=== PATIENT | female | born 1950 | race Caucasian/White ===

== ENCOUNTER 2019-02-27 14:36 | Inpatient (IN) | payer MEDICARE, OTHER ==
[~2019-02-27] VITALS: Ht 154.9 cm; Wt 80.9 kg
[~2019-02-27 14:36] MED LIST: AMLO5TAB4 PO; ATEN-51 PO; CRES20 PO; DOCU-144 PO; ERGO500013 PO; ESOM20CA PO; LEVO75TA5 PO; LISI10TA2 PO; OMEG1CAP2 PO
[2019-02-27] MEDS ORDERED: SOD CHLORIDE 0.9% 500 ML IV STA (16:34)
--- NOTE | 2019-02-27 17:26 | ERD ---
ER Documentation Chief Complaint Chief Complaint MD ref for Hgb 7.4. 2 wks of bleeding hemorrhoids. dizzy+ weak HPI This is a 68-year-old female with a past medical history of [id number] diabetes mellitus, hypertension, hypothyroidism that presents to the emergency department after being seen and evaluated by the primary care physician for generalized weakness. The patient indicates for the past 2 weeks she is felt lightheaded and dizzy. She feels short of breath with exertion. She states that she is been having a significant amount of rectal bleeding from her hemorrhoids. Roughly 6 months ago she had her hemorrhoids removed with surgical repair but she indicated they have returned as she has a known history of chronic constipation. The patient received a call from her primary care physician today that her hemoglobin was low at 7.4. She was sent to the emergency department for further evaluation. She denies any hemoptysis or hematemesis and no melanotic stools. She states the rectal bleeding is brig ht red blood per rectum present when she attempts to have a bowel movement. She denies any abdominal pain. She denies any recent travel or prolonged immobilization no swelling of her lower extremities. ROS All systems reviewed and are negative except as per history of present illness. Medications Home Meds Reported Medications Ergocalciferol (Vitamin D2) (VITAMIN D2) 50,000 Unit Capsule, 44592 UNIT PO Q FRI, CAP 02/27/19 [place]-3 Acid Ethyl Esters (Lovaza) 1 Gm Capsule, 2 GM PO BID, CAP 02/27/19 Rosuvastatin Calcium* (Crestor*) 20 Mg Tablet, 20 MG PO QHS, #30 TAB 02/27/19 Esomeprazole Mag Trihydrate (Nexium) 20 Mg Capsule.dr, 20 MG PO BID, #30 CAP 02/27/19 Amlodipine Besylate* (Norvasc*) 5 Mg Tablet, 5 MG PO DAILY, TAB 02/27/19 Atenolol* (Atenolol*) 25 Mg Tablet, 25 MG PO DAILY, #30 TAB 02/27/19 Levothyroxine Sodium* (Levothyroxine Sodium*) 75 Mcg Tablet, 75 MCG PO BEFORE BREAKFAST, #30 TAB 02/27/19 Docusate Sodium* (Colace*) 100 Mg Capsule, 100 MG PO BID, #60 CAP 02/27/19 Lisinopril* (Lisinopril*) 10 Mg Tablet, 10 MG PO NEEDED, #30 TAB 02/27/19 Allergies Allergies: Coded Allergies: aspirin (Verified Allergy, Unknown, 02/27/19) PMhx/Soc History of Surgery: Yes (Api) Anesthesia Reaction: No Hx Neurological Disorder: No Hx Respiratory Disorders: No Hx Cardiac Disorders: Yes (HTN, HLD) Hx Psychiatric Problems: No Hx Miscellaneous Medical Probl: Yes (low thyroid, arthritis) Hx Alcohol Use: No Hx Substance Use: No Hx Tobacco Use: No Smoking Status: Never smoker Physical Exam Vitals Vital Signs Date Temp Pulse Resp B/P (MAP) Pulse Ox O2 O2 Flow FiO2 Time Delivery Rate 02/27/19 98.0 66 16 138/76 97 Room Air 17:30 (96) 02/27/19 98.7 82 16 140/74 95 14:50 (96) Physical Exam Constitutional:Well-developed. Well-nourished. HEENT:Normocephalic. Atraumatic.Pupils were equal round reactive to light. Moist mucous membranes.No tonsillar exudates. Conjunctival pallor Neck: No nuchal rigidity. No lymphadenopathy. No posterior cervical spine tenderness or step-offs. Respiratory: Not using accessory muscles of respiration.Lungs were clear to auscultation bilaterally. No rhonchi. No rales. No wheezing. Cardiovascular: Regular rate regular rhythm.No murmurs. No rubs were appreciated.S1, S2 normal. Distal pulses are palpable 2+ bilaterally. GI: Abdomen was soft. Nontender. Non Distended. No pulsatile abdominal masses or bruits. No rebound. No guarding. Bowel sounds were present and normal. RECTAL: External hemorrhoids present at the 3:00 6:00 and 9 o'clock position with no active rectal bleeding. Fecal occult blood test was negative. Muscle skeletal: Full range of motion of both the upper and lower extremities bilaterally.Normal muscle tone.No assymetrical calf tenderness or swelling. Skin: No petechia, no purpura. No lesions on the palms or the soles of the feet. No maculopapular rash. NEURO: Patient was alert, awake, orientated x3.No facial droop. Gait observed and normal with no ataxia.Speech had regular rate and rhythm. No focal neurological deficits. Result Diagram: 02/27/19 1550 02/27/19 1550 Results 24 hrs Laboratory Tests Test 02/27/19 15:50 White Blood Count 4.9 10^3/ul Red Blood Count 3.40 10^6/ul Hemoglobin 6.9 g/dl Hematocrit 24.4 % Mean Corpuscular Volume 71.8 fl Mean Corpuscular Hemoglobin 20.3 pg Mean Corpuscular Hemoglobin Concent 28.3 g/dl Red Cell Distribution Width 17.9 % Platelet Count 273 10^3/UL Mean Platelet Volume 10.5 fl Immature Granulocytes % 0.200 % Neutrophils % % Segmented Neutrophils % (Manual) 52 % Lymphocytes % % Lymphocytes % (Manual) 43 % Monocytes % % Monocytes % (Manual) 1 % Eosinophils % % Eosinophils % (Manual) 3 % Basophils % % Basophils % (Manual) 1 % Nucleated Red Blood Cells % 0.0 /100WBC Immature Granulocytes # 0.010 10^3/ul Neutrophils # 10^3/ul Lymphocytes (Manual) 2.1 10^3/ul Lymphocytes # 10^3/ul Monocytes # 10^3/ul Monocytes # (Manual) 0.0 10^3/ul Eosinophils # 10^3/ul Basophils # 10^3/ul Basophils # (Manual) 0.0 10^3/ul Nucleated Red Blood Cells # 10^3/ul Pathologist Review (Hematology) YES Platelet Estimate NORMAL Giant Platelets 3 % Polychromasia 2+ Hypochromasia 1+ Poikilocytosis 1+ Anisocytosis 3+ Microcytosis 3+ Sodium Level 143 mmol/L Potassium Level 4.4 mmol/L Chloride Level 108 mmol/L Carbon Dioxide Level 27 mmol/L Anion Gap 8 Blood Urea Nitrogen 16 mg/dl Creatinine 0.85 mg/dl Est Glomerular Filtrat Rate mL/min > 60 mL/min Glucose Level 109 mg/dl Calcium Level 9.3 mg/dl Iron Level 13 ug/dl Total Iron Binding Capacity 477 ug/dl Percent Iron Saturation 3 % SAT Ferritin 3.3 ng/ml Total Bilirubin 0.3 mg/dl Direct Bilirubin 0.00 mg/dl Indirect Bilirubin 0.3 mg/dl Aspartate Amino Transf (AST/SGOT) 25 IU/L Alanine Aminotransferase (ALT/SGPT) 15 IU/L Alkaline Phosphatase 43 IU/L Total Protein 7.7 g/dl Albumin 4.2 g/dl Globulin 3.50 g/dl Albumin/Globulin Ratio 1.20 Current Medications Medications Dose Sig/Ronni Start Time Status Last (Trade) Ordered Route PRN Stop Time Admin Dose Reason Admin Sodium 500 ml @ Q1H STAT 02/27/19 DC 02/27/19 Chloride 500 mls/hr IV 16:34 16:54 02/27/19 17:33 Procedures/MDM The patient presented to the emergency department with hematochezia, suggesting a lower gastrointestinal bleeding. My differential diagnosis included but was not limited to diverticulosis, cancer, polyps, colitis, internal or external hemorrhoids, IBD, and vascular etiologies such as angiodysplasia or aortocolonic fistula. The patient was placed on a youth nutritional monitor, continuous pulse oximetry, and IV access established by nursing staff. Patient was anemic with hemoglobin of 6.9. I did feel the patient's symptoms are likely result of her lower GI bleed from external hemorrhoids. The patient will be typed and crossed and received 1 unit of packed red blood cells in the emergency department. 12 Lead EKG tracing ordered and reviewed by myself showed: Normal sinus rhythm of 70 bpm and no arrhythmia. [place] interval normal. QRS duration normal. No ST segment elevation No ST segment depression. No changes consistent with acute ischemia. The patient I did feel stable for transfer. She was alert awake oriented x3. There is no signs of hemorrhagic shock. The patient was capitated to [facility] however the accepting physician there did not feel that the patient was stable for transfer and therefore will be admitted to the hospit alist Dr. Warner. She will be admitted to the medical surgical floor. Critical Care: Time: 40 minutes Treatments/Evaluations: Close monitoring and treatment of unstable vital signs, cardiorespiratory, and neurologic status, while maintaining tight balance of fluid, respiratory, and cardiac interventions. Time does not include performing any of the above billable procedures. Departure Diagnosis: Primary Impression: Severe anemia Additional Impression: Lower GI bleed Condition: Serious TARAN KONG MD Feb 27, 2019 17:26
[2019-02-27] MEDS ORDERED: ACETAMINOPHEN 325 MG TAB PO PRN ×2 (18:30→19:00)
[2019-02-27] MEDS ORDERED: ONDANSETRON 4 MG INJ IV PRN ×2 (18:30→19:00)
[2019-02-27] MEDS ORDERED: SENNA TAB PO PRN (19:00)
[2019-02-27] MEDS ORDERED: NACL 0.9% 3 ML SYG IV SCH (19:00)
--- NOTE | 2019-02-27 19:17 | HP ---
Date/Time of Note Date/Time of Note DATE: 02/27/19 TIME: 19:03 Assessment/Plan VTE Prophylaxis SCD applied (from Nsg): Yes Pharmacological prophylaxis: NA/contraindicated Pharm contraindication: bleeding Lines/Catheters IV Catheter Type (from Nrsg): Saline Lock Assessment/Plan Assessment/Plan 68 yo woman with history of bleeding rectal hemorrhoids, HTN, type II diabetes mellitus, and hypothyroidism presents with symptomatic anemia #Symptomatic anemia - Iron deficiency - Transfuse to Hgb>7 or for symptomatic anemia - Will do IV ferrlicit also #Rectal bleed - Likely bleeding hemorrhoids. May be slow chronic bleed - Will consult GI, patient likely needs colonoscopy to rule out occult lower GI bleed. - Will do clear liquids for tonight. #Diabetes - Not on insulin or metformin. - Check HgbA1C - ACHS blood sugar checks. #HTN - Cont home antihypertensives #GERD - H2 alexis IV BID #dyslipidemia - Cont home statin #Hypothyroidism - Cont home levothyroxine DVT: SCDs GI: H2 alexis Result Diagram: 02/27/19 1550 02/27/19 1550 HPI/ROS Admit Date/Time Admit Date/Time 27 February 2019 Hx of Present Illness Ms. Hutchins is a 68 yo [place] speaking woman with history of bleeding rectal hemorrhoids, HTN, type II diabetes mellitus, and hypothyroidism who presents with fatigue and weakness. She has had constipation and bleeding hemorrhoids for years. About 6 months ago she got the internal hemorrhoids banded by Dr. Tyra Skelton. However in the past two weeks she's noticed intermittent episodes of thick red rectal bleeding. Often after she sits for a long time she'll have spots of blood on her pants. Also over the past two weeks she's had fatigue and worsening exercise tolerance with dyspnea, lightheadedness, and palpitations when walking. She denies melena or dark black stools. She had a colonoscopy about 6 years ago, she thinks it was normal. Never had upper endoscopy. She saw her primary care doctor today and got labs. Hgb came back at 7.4 so she was instructed to go to the ED to get blood transfusion for symptomatic anemia. In the ED she was afebrile, P 60-80s, BP 140/74, breathing comfortably on room a ir. Hgb was 6.9 with MCV 71.8. ferritin was 3.3. BMP was unremarkable. A transfusion of packed RBCs was started. ROS She denies recent fever, chills, weight loss, night sweats, vision changes, sore throat, dyspnea, nausea, vomiting, abdominal pain, cough, chest pain or pressure , diarrhea, dysuria, hematuria. PMH/Family/Social Past Medical History Bleeding internal and external hemorrhoids. Hypertension dyslipidemia hypothyroidism GERD Medications Current Medications Ondansetron HCl (Zofran Inj) 4 mg BRIDGE ORDER PRN IV NAUSEA/VOMITING; Start 02/27/19 at 18:30; Stop 02/28/19 at 18:29 Acetaminophen (Tylenol Tab) 650 mg ER BRIDGE PRN PO .MILD PAIN 1-3 OR TEMP; Start 02/27/19 at 18:30; Stop 02/28/19 at 18:29 IV Flush (NS 3 ml) 3 ml PER PROTOCOL IV ; Start 02/27/19 at 19:00; Status UNV Ondansetron HCl (Zofran Inj) 4 mg Q6H PRN IV NAUSEA/VOMITING; Start 02/27/19 at 19:00; Status UNV Acetaminophen (Tylenol Tab) 650 mg Q6H PRN PO .PAIN 1-3 OR TEMP; Start 02/27/19 at 19:00; Status UNV Famotidine (Pepcid Iv) 20 mg Q12 IV ; Start 02/27/19 at 21:00; Status UNV Senna (Senokot) 1 tab BID PRN PO CONSTIPATION; Start 02/27/19 at 19:00; Status UNV Coded Allergies: aspirin (Verified Allergy, Unknown, 02/27/19) Past Surgical History Rectal hemorrhoid banding early 2018. Unknown RLQ abdominal surgery Social History Alcohol Use: none Smoking Status: Never smoker Drug Use: none Exam/Review of Systems Vital Signs Vitals Vital Signs Date Temp Pulse Resp B/P (MAP) Pulse Ox O2 O2 Flow FiO2 Time Delivery Rate 02/27/19 98.0 66 16 138/76 97 Room Air 17:30 (96) Exam Exam Gen: Obese woman comfortable appearing in [facility]. Eyes: PERRL, no icterus HEENT: Moist mucous membranes. Top and bottom dentures. Clear oropharynx Neck: Supple, no lymphadenopathy Card: Regular rate and rhythm, no murmurs Pulm: Clear to auscultation bilaterally. Abd: Soft, nontender, nondistended. Normoactive bowel sounds. RLQ small 6 cm incision, well healed. Ext: No cyanosis/clubbing/edema Skin: warm, dry, well perfused. MELZIA SNOW MD Feb 27, 2019 19:17
[2019-02-27 19:30] VITALS: Ht 154.9 cm; Wt 80.9 kg
[2019-02-27] MEDS ORDERED: GLUCOSE GEL 15 GRAM TUBE BUCCAL PRN (19:30)
[2019-02-27] MEDS ORDERED: DEXTROSE 50% 50 ML SYRINGE IV PRN ×2 (19:30)
[2019-02-27] MEDS ORDERED: GLUCAGON 1 MG INJ IM PRN (19:30)
[2019-02-27] MEDS ORDERED: GLUCOSE GEL 15 GRAM TUBE PO PRN ×2 (19:30)
[2019-02-27 20:32] VITALS: BP 134/74; PULSE 70; RESP 18
[2019-02-27] MEDS: FAMOTIDINE 20 MG INJ IV SCH (21:00)
[2019-02-27] MEDS: INSULIN ASPART [NOVOLOG] 3 ML PEN SC SCH (21:00)
[2019-02-27] MEDS: DOCUSATE SODIUM 100 MG CAP PO SCH (21:17)
[2019-02-27] MEDS: ATORVASTATIN 40 MG TAB PO SCH (21:17)
[2019-02-28] MEDS ORDERED: ZOLPIDEM 5 MG TAB ONE (00:30)
[2019-02-28] MEDS: ZOLPIDEM 5 MG TAB PO PRN ×2 (00:40→20:24)
[2019-02-28] MEDS: ACCU-CHEK XX SCH ×2 (02:00→20:23)
[2019-02-28 02:53] VITALS: BP 126/66; PULSE 76; RESP 16
[2019-02-28] MEDS: LEVOTHYROXINE 75 MCG TAB PO SCH (06:14)
[2019-02-28] MEDS: INSULIN ASPART [NOVOLOG] 3 ML PEN SC SCH ×4 (07:49→20:23)
[2019-02-28 08:08] VITALS: BP 123/71; PULSE 67; RESP 17
[2019-02-28] MEDS: DOCUSATE SODIUM 100 MG CAP PO SCH ×2 (09:05→20:22)
[2019-02-28] MEDS: LISINOPRIL 10 MG TAB PO SCH (09:05)
[2019-02-28] MEDS: ATENOLOL 25 MG TAB PO SCH (09:05)
[2019-02-28] MEDS: AMLODIPINE 5 MG TAB PO SCH (09:05)
--- NOTE | 2019-02-28 11:17 | CONS ---
Assessment/Plan Assessment/Plan Hospital Course (Demo Recall) Summary Assessment and Plan: Assessment: Symptomatic anemia -With rectal bleeding described as dark/ with clots History of hemorrhoidal banding about 7 months ago Pyrosis HTN DM Dyslipidemia Hypothyroidism Plan: Clear liquid diet today Npo after 0800 03/01/19 EGD/colonoscopy Endoscopy - risks/benefits/alternatives/indications of procedure and sedation/anesthesia discussed with patient who states understanding and gives informed consent to proceed. Monitor H/H, transfuse for HGB less than 7.5 Patient seen in collaboration with Dr. Kaminski CC: PHI KAMINSKI MD ; Consultation Date/Type/Reason Admit Date/Time 27 February 2019 Date of Consultation: Feb 28, 2019 Type of Consult GI Reason for Consultation Anemia Requesting Provider: MELIZA SNOW MD Date/Time of Note DATE: 02/28/19 TIME: 10:54 Hx of Present Illness This is a 68-year-old [place] speaking female with past medical history of hypertension, diabetes mellitus, hypothyroidism, previous hemorrhoidal banding about 7 months ago. Who presented to the hospital with complaints of weakness and shortness of breath. With work-up patient found to have significant microcytic hypochromic anemia with a hemoglobin of 6.8 she is status post blood transfusion with an appropriate response hemoglobin this morning was 8.0. At time evaluation patient states she has had rectal bleeding. Described as dark red with clots. Patient states she is previously had a colonoscopy about 5 to 6 years ago unclear results. And she is unclear she is ever had an upper endoscopy. Time evaluation she denies nausea/vomiting or abdominal pain. Discussed plan for EGD colonoscopy via general office assistant patient verbalized understanding is agreeable to procedure. Review of Systems: A 12 system, review was conducted and is negative except as noted in the HPI or here. Past Medical History Home Meds Reported Medications Ergocalciferol (Vitamin D2) (VITAMIN D2) 50,000 Unit Capsule, 81701 UNIT PO Q FRI, CAP 02/27/19 [place]-3 Acid Ethyl Esters (Lovaza) 1 Gm Capsule, 2 GM PO BID, CAP 02/27/19 Rosuvastatin Calcium* (Crestor*) 20 Mg Tablet, 20 MG PO QHS, #30 TAB 02/27/19 Esomeprazole Mag Trihydrate (Nexium) 20 Mg Capsule.dr, 20 MG PO BID, #30 CAP 02/27/19 Amlodipine Besylate* (Norvasc*) 5 Mg Tablet, 5 MG PO DAILY, TAB 02/27/19 Atenolol* (Atenolol*) 25 Mg Tablet, 25 MG PO DAILY, #30 TAB 02/27/19 Levothyroxine Sodium* (Levothyroxine Sodium*) 75 Mcg Tablet, 75 MCG PO BEFORE BREAKFAST, #30 TAB 02/27/19 Docusate Sodium* (Colace*) 100 Mg Capsule, 100 MG PO BID, #60 CAP 02/27/19 Lisinopril* (Lisinopril*) 10 Mg Tablet, 10 MG PO NEEDED, #30 TAB 02/27/19 Medications Current Medications IV Flush (NS 3 ml) 3 ml PER PROTOCOL IV ; Start 02/27/19 at 19:00 Ondansetron HCl (Zofran Inj) 4 mg Q6H PRN IV NAUSEA/VOMITING; Start 02/27/19 at 19:00 Acetaminophen (Tylenol Tab) 650 mg Q6H PRN PO .PAIN 1-3 OR TEMP; Start 02/27/19 at 19:00 Famotidine (Pepcid Iv) 20 mg Q24H IV ; Start 02/27/19 at 21:00 Senna (Senokot) 1 tab BID PRN PO CONSTIPATION; Start 02/27/19 at 19:00 Amlodipine Besylate (Norvasc) 5 mg DAILY PO Last administered on 02/28/19at 09:05; Admin Dose 5 MG; Start 02/28/19 at 09:00 Atenolol (Tenormin) 25 mg DAILY PO Last administered on 02/28/19at 09:05; Admin Dose 25 MG; Start 02/28/19 at 09:00 Docusate Sodium (Colace) 100 mg BID PO Last administered on 02/28/19at 09:05; Admin Dose 100 MG; Start 02/27/19 at 21:00 Levothyroxine Sodium (Synthroid) 75 mcg BEFORE BREAKFAST PO Last administered on 02/28/19at 06:14; Admin Dose 75 MCG; Start 02/28/19 at 07:00 Lisinopril (Zestril) 10 mg DAILY PO Last administered on 02/28/19at 09:05; Admin Dose 10 MG; Start 02/28/19 at 09:00 Atorvastatin Calcium (Lipitor) 40 mg QHS PO Last administered on 02/27/19at 21:17; Admin Dose 40 MG; Start 02/27/19 at 21:00 Diagnostic Test (Pha) (Accu-Chek) 1 ea 02 XX ; Start 02/28/19 at 02:00 Insulin Aspart (Novolog Insulin Pen) NOVOLOG *MILD* ALGORITHM WITH MEALS BEDTIME SC ; Start 02/27/19 at 21:00 Ferric Sodium Gluconate Complex 125 mg/Sodium Chloride 100 ml @ 100 mls/hr DAILY@1300 IVPB ; Start 02/28/19 at 13:00; Stop 03/02/19 at 13:59 Miscellaneous Information 1 ea NOTE XX ; Start 02/27/19 at 19:30 Glucose (Glutose) 15 gm Q15M PRN PO DECREASED GLUCOSE; Start 02/27/19 at 19:30 Glucose (Glutose) 22.5 gm Q15M PRN PO DECREASED GLUCOSE; Start 02/27/19 at 19:30 Dextrose (D50w Syringe) 25 ml Q15M PRN IV DECREASED GLUCOSE; Start 02/27/19 at 19:30 Dextrose (D50w Syringe) 50 ml Q15M PRN IV DECREASED GLUCOSE; Start 02/27/19 at 19:30 Glucagon (Glucagen) 1 mg Q15M PRN IM DECREASED GLUCOSE; Start 02/27/19 at 19:30 Glucose (Glutose) 15 gm Q15M PRN BUCCAL DECREASED GLUCOSE; Start 02/27/19 at 19:30 Zolpidem Tartrate (Ambien) 5 mg HS PRN PO INSOMNIA Last administered on 02/28/19at 00:40; Admin Dose 5 MG; Start 02/28/19 at 00:30 Allergies: Coded Allergies: aspirin (Verified Allergy, Unknown, 02/27/19) Social History Alcohol Use: none Smoking Status: Never smoker Drug Use: none Exam/Review of Systems Exam Vitals Vital Signs Date Temp Pulse Resp B/P (MAP) Pulse Ox O2 O2 Flow FiO2 Time Delivery Rate 02/28/19 98.0 67 17 123/71 96 Room Air 08:08 (88) Intake and Output 02/27/19 02/27/19 02/28/19 1515:00 23:00 07:00 IntakeIntake Total 350 ml BalanceBalance 350 ml Exam PHYSICAL EXAMINATION: GENERAL: Alert & oriented x 3, in no acute distress SKIN: Vitiligo HEAD: Normocephalic, atraumatic, no tenderness. EYES: Pupils equal reactive to light, no discharge. EARS/NOSE AND THROAT: Ears normal, nose normal, oropharynx normal, oral membranes well hydrated without lesions. NECK: Supple, no masses. CHEST: Inspection within normal limits. CARDIOVASCULAR: Heart: Regular rate and rhythm RESPIRATORY: Lungs clear to auscultation and percussion, no wheezing, no rubs GASTROINTESTINAL AND LIVER: Abdomen: Soft, non tenderness, non-distended, no hernias, no masses, no organomegaly, no ascites, no guarding, no rebound tenderness, normoactive bowel sounds. Rectal: Deferred. EXTREMITIES: No cyanosis, clubbing or edema. Results Result Diagram: 02/28/19 0616 02/27/19 1550 Results 24hrs Laboratory Tests Test 02/27/19 15:50 02/27/19 21:20 02/28/19 06:16 02/28/19 06:35 White Blood Count 4.9 4.4 L Red Blood Count 3.40 L 3.74 L Hemoglobin 6.9 *L 8.0 L Hematocrit 24.4 L 26.9 L Mean Corpuscular 71.8 L 71.9 L Volume Mean Corpuscular 20.3 L 21.4 L Hemoglobin Mean Corpuscular 28.3 L 29.7 L Hemoglobin Concen t Red Cell 17.9 H 18.3 H Distribution Width Platelet Count 273 257 Mean Platelet 10.5 H 10.6 H Volume Immature 0.200 0.200 Granulocytes % Neutrophils % 42.8 Segmented 52 Neutrophils % (Manual) Lymphocytes % 43.5 Lymphocytes % 43 (Manual) Monocytes % 10.8 Monocytes % 1 (Manual) Eosinophils % 1.8 Eosinophils % 3 (Manual) Basophils % 0.9 Basophils % 1 (Manual) Nucleated Red 0.0 0.0 Blood Cells % Immature 0.010 0.010 Granulocytes # Neutrophils # 1.9 Lymphocytes 2.1 (Manual) Lymphocytes # 1.9 Monocytes # 0.5 Monocytes # 0.0 L (Manual) Eosinophils # 0.1 Basophils # 0.0 Basophils # 0.0 (Manual) Nucleated Red 0.0 Blood Cells # Pathologist YES Review (Hematolog y) Platelet Estimate NORMAL Giant Platelets 3 H Polychromasia 2+ Hypochromasia 1+ Poikilocytosis 1+ Anisocytosis 3+ Microcytosis 3+ Sodium Level 143 Potassium Level 4.4 Chloride Level 108 Carbon Dioxide 27 Level Anion Gap 8 Blood Urea 16 Nitrogen Creatinine 0.85 Est Glomerular > 60 Filtrat Rate mL/min Glucose Level 109 Calcium Level 9.3 Iron Level 13 L Total Iron 477 H Binding Capacity Percent Iron 3 L Saturation Transferrin 383 H Ferritin 3.3 L Total Bilirubin 0.3 Direct Bilirubin 0.00 Indirect 0.3 Bilirubin Aspartate Amino 25 Transf (AST/SGOT) Alanine 15 Aminotransferase (ALT/SGPT) Alkaline 43 Phosphatase Total Protein 7.7 Albumin 4.2 Globulin 3.50 H Albumin/Globulin 1.20 Ratio Bedside Glucose 100 Hemoglobin A1c 6.3 H Lab Scanned BLOOD TRANSFUSIO Report N Test 02/28/19 07:49 Bedside Glucose 120 Medications Medication Current Medications IV Flush (NS 3 ml) 3 ml PER PROTOCOL IV ; Start 02/27/19 at 19:00 Ondansetron HCl (Zofran Inj) 4 mg Q6H PRN IV NAUSEA/VOMITING; Start 02/27/19 at 19:00 Acetaminophen (Tylenol Tab) 650 mg Q6H PRN PO .PAIN 1-3 OR TEMP; Start 02/27/19 at 19:00 Famotidine (Pepcid Iv) 20 mg Q24H IV ; Start 02/27/19 at 21:00 Senna (Senokot) 1 tab BID PRN PO CONSTIPATION; Start 02/27/19 at 19:00 Amlodipine Besylate (Norvasc) 5 mg DAILY PO Last administered on 02/28/19 09:05; Admin Dose 5 MG; Start 02/28/19 at 09:00 Atenolol (Tenormin) 25 mg DAILY PO Last administered on 02/28/19at 09:05; Admin Dose 25 MG; Start 02/28/19 at 09:00 Docusate Sodium (Colace) 100 mg BID PO Last administered on 02/28/19 09:05; Admin Dose 100 MG; Start 02/27/19 at 21:00 Levothyroxine Sodium (Synthroid) 75 mcg BEFORE BREAKFAST PO Last administered on 02/28/19 06:14; Admin Dose 75 MCG; Start 02/28/19 at 07:00 Lisinopril (Zestril) 10 mg DAILY PO Last administered on 7/25/19at 09:05; Admin Dose 10 MG; Start 02/28/19 at 09:00 Atorvastatin Calcium (Lipitor) 40 mg QHS PO Last administered on 02/27/19at 21:17; Admin Dose 40 MG; Start 02/27/19 at 21:00 Diagnostic Test (Pha) (Accu-Chek) 1 ea 02 XX ; Start 02/28/19 at 02:00 Insulin Aspart (Novolog Insulin Pen) NOVOLOG *MILD* ALGORITHM WITH MEALS BEDTIME SC ; Start 02/27/19 at 21:00 Ferric Sodium Gluconate Complex 125 mg/Sodium Chloride 100 ml @ 100 mls/hr DAILY@1300 IVPB ; Start 02/28/19 at 13:00; Stop 03/02/19 at 13:59 Miscellaneous Information 1 ea NOTE XX ; Start 02/27/19 at 19:30 Glucose (Glutose) 15 gm Q15M PRN PO DECREASED GLUCOSE; Start 02/27/19 at 19:30 Glucose (Glutose) 22.5 gm Q15M PRN PO DECREASED GLUCOSE; Start 02/27/19 at 19:30 Dextrose (D50w Syringe) 25 ml Q15M PRN IV DECREASED GLUCOSE; Start 02/27/19 at 19:30 Dextrose (D50w Syringe) 50 ml Q15M PRN IV DECREASED GLUCOSE; Start 02/27/19 at 19:30 Glucagon (Glucagen) 1 mg Q15M PRN IM DECREASED GLUCOSE; Start 02/27/19 at 19:30 Glucose (Glutose) 15 gm Q15M PRN BUCCAL DECREASED GLUCOSE; Start 02/27/19 at 19:30 Zolpidem Tartrate (Ambien) 5 mg HS PRN PO INSOMNIA Last administered on 02/28/19at 00:40; Admin Dose 5 MG; Start 02/28/19 at 00:30 COLETTE JOHNSON Feb 28, 2019 11:12
[2019-02-28] MEDS ORDERED: BISACODYL (EC) 5 MG TAB PO ONE (11:30)
[2019-02-28] MEDS: SOD FERRIC GLUC COMPLX 125 MG in SOD CHLORIDE 0.9% 100 ML IVPB SCH (13:27)
--- NOTE | 2019-02-28 14:13 | PN ---
Date/Time of Note Date/Time of Note DATE: 02/28/19 TIME: 14:11 Assessment/Plan VTE Prophylaxis Risk score (from Nsg)>0 risk: 2 SCD applied (from Nsg): Yes Pharmacological prophylaxis: NA/contraindicated Pharm contraindication: low risk/ambulating Lines/Catheters IV Catheter Type (from Nrsg): Saline Lock Urinary Cath still in place: No Assessment/Plan Assessment/Plan 68 yo woman with history of bleeding rectal hemorrhoids, HTN, type II diabetes mellitus, and hypothyroidism presents with symptomatic anemia #Symptomatic anemia - Iron deficiency - Transfuse to Hgb>7 or for symptomatic anemia - Will do IV ferrlicit also #Rectal bleed - Likely bleeding hemorrhoids. May be slow chronic bleed - GI consulted. - Plan for EGD+colonoscopy #Diabetes - Not on insulin or metformin. - Check HgbA1C - ACHS blood sugar checks. #HTN - Cont home antihypertensives #GERD - H2 alexis IV BID #dyslipidemia - Cont home statin #Hypothyroidism - Cont home levothyroxine DVT: SCDs GI: H2 alexis Result Diagram: 02/28/19 0616 02/27/19 1550 Subjective 24 Hr Interval Summary Free Text/Dictation No acute overnight events. Patient has been having loose, nonbloody stools. Exam/Review of Systems Exam Vitals Vital Signs Date Temp Pulse Resp B/P (MAP) Pulse Ox O2 O2 Flow FiO2 Time Delivery Rate 02/28/19 98.0 67 17 123/71 96 Room Air 08:08 (88) Intake and Output 02/27/19 02/27/19 02/28/19 1515:00 23:00 07:00 IntakeIntake Total 350 ml BalanceBalance 350 ml Exam Gen: Obese woman comfortable appearing in [facility]. Eyes: PERRL, no icterus HEENT: Moist mucous membranes. Top and bottom dentures. Clear oropharynx Neck: Supple, no lymphadenopathy Card: Regular rate and rhythm, no murmurs Pulm: Clear to auscultation bilaterally. Abd: Soft, nontender, nondistended. Normoactive bowel sounds. RLQ small 6 cm incision, well healed. Ext: No cyanosis/clubbing/edema Skin: warm, dry, well perfused. Results Results 24hrs Laboratory Tests Test 02/27/19 15:50 02/27/19 21:20 7/25/19 06:16 02/28/19 06:35 White Blood Count 4.9 4.4 L Red Blood Count 3.40 L 3.74 L Hemoglobin 6.9 *L 8.0 L Hematocrit 24.4 L 26.9 L Mean Corpuscular 71.8 L 71.9 L Volume Mean Corpuscular 20.3 L 21.4 L Hemoglobin Mean Corpuscular 28.3 L 29.7 L Hemoglobin Concen t Red Cell 17.9 H 18.3 H Distribution Width Platelet Count 273 257 Mean Platelet 10.5 H 10.6 H Volume Immature 0.200 0.200 Granulocytes % Neutrophils % 42.8 Segmented 52 Neutrophils % (Manual) Lymphocytes % 43.5 Lymphocytes % 43 (Manual) Monocytes % 10.8 Monocytes % 1 (Manual) Eosinophils % 1.8 Eosinophils % 3 (Manual) Basophils % 0.9 Basophils % 1 (Manual) Nucleated Red 0.0 0.0 Blood Cells % Immature 0.010 0.010 Granulocytes # Neutrophils # 1.9 Lymphocytes 2.1 (Manual) Lymphocytes # 1.9 Monocytes # 0.5 Monocytes # 0.0 L (Manual) Eosinophils # 0.1 Basophils # 0.0 Basophils # 0.0 (Manual) Nucleated Red 0.0 Blood Cells # Pathologist YES Review (Hematolog y) Platelet Estimate NORMAL Giant Platelets 3 H Polychromasia 2+ Hypochromasia 1+ Poikilocytosis 1+ Anisocytosis 3+ Microcytosis 3+ Sodium Level 143 Potassium Level 4.4 Chloride Level 108 Carbon Dioxide 27 Level Anion Gap 8 Blood Urea 16 Nitrogen Creatinine 0.85 Est Glomerular > 60 Filtrat Rate mL/min Glucose Level 109 Calcium Level 9.3 Iron Level 13 L Total Iron 477 H Binding Capacity Percent Iron 3 L Saturation Transferrin 383 H Ferritin 3.3 L Total Bilirubin 0.3 Direct Bilirubin 0.00 Indirect 0.3 Bilirubin Aspartate Amino 25 Transf (AST/SGOT) Alanine 15 Aminotransferase (ALT/SGPT) Alkaline 43 Phosphatase Total Protein 7.7 Albumin 4.2 Globulin 3.50 H Albumin/Globulin 1.20 Ratio Bedside Glucose 100 Hemoglobin A1c 6.3 H Lab Scanned BLOOD TRANSFUSIO Report N Test 02/28/19 07:49 02/28/19 11:46 Bedside Glucose 120 122 Medications Medication Current Medications IV Flush (NS 3 ml) 3 ml PER PROTOCOL IV ; Start 02/27/19 at 19:00 Ondansetron HCl (Zofran Inj) 4 mg Q6H PRN IV NAUSEA/VOMITING; Start 02/27/19 at 19:00 Acetaminophen (Tylenol Tab) 650 mg Q6H PRN PO .PAIN 1-3 OR TEMP; Start 02/27/19 at 19:00 Famotidine (Pepcid Iv) 20 mg Q24H IV ; Start 02/27/19 at 21:00 Senna (Senokot) 1 tab BID PRN PO CONSTIPATION; Start 02/27/19 at 19:00 Amlodipine Besylate (Norvasc) 5 mg DAILY PO Last administered on 02/28/19at 09:05; Admin Dose 5 MG; Start 02/28/19 at 09:00 Atenolol (Tenormin) 25 mg DAILY PO Last administered on 02/28/19at 09:05; Admin Dose 25 MG; Start 02/28/19 at 09:00 Docusate Sodium (Colace) 100 mg BID PO Last administered on 02/28/19at 09:05; Admin Dose 100 MG; Start 02/27/19 at 21:00 Levothyroxine Sodium (Synthroid) 75 mcg BEFORE BREAKFAST PO Last administered on 02/28/19at 06:14; Admin Dose 75 MCG; Start 02/28/19 at 07:00 Lisinopril (Zestril) 10 mg DAILY PO Last administered on 02/28/19at 09:05; Admin Dose 10 MG; Start 02/28/19 at 09:00 Atorvastatin Calcium (Lipitor) 40 mg QHS PO Last administered on 02/27/19at 21:17; Admin Dose 40 MG; Start 02/27/19 at 21:00 Diagnostic Test (Pha) (Accu-Chek) 1 ea 02 XX ; Start 02/28/19 at 02:00 Insulin Aspart (Novolog Insulin Pen) NOVOLOG *MILD* ALGORITHM WITH MEALS BEDTIME SC ; Start 02/27/19 at 21:00 Ferric Sodium Gluconate Complex 125 mg/Sodium Chloride 100 ml @ 100 mls/hr DAILY@1300 IVPB Last administered on 02/28/19at 13:27; Admin Dose 100 MLS/HR; Start 02/28/19 at 13:00; Stop 03/02/19 at 13:59 Miscellaneous Information 1 ea NOTE XX ; Start 02/27/19 at 19:30 Glucose (Glutose) 15 gm Q15M PRN PO DECREASED GLUCOSE; Start 02/27/19 at 19:30 Glucose (Glutose) 22.5 gm Q15M PRN PO DECREASED GLUCOSE; Start 02/27/19 at 19:30 Dextrose (D50w Syringe) 25 ml Q15M PRN IV DECREASED GLUCOSE; Start 02/27/19 at 19:30 Dextrose (D50w Syringe) 50 ml Q15M PRN IV DECREASED GLUCOSE; Start 02/27/19 at 19:30 Glucagon (Glucagen) 1 mg Q15M PRN IM DECREASED GLUCOSE; Start 02/27/19 at 19:30 Glucose (Glutose) 15 gm Q15M PRN BUCCAL DECREASED GLUCOSE; Start 02/27/19 at 19:30 Zolpidem Tartrate (Ambien) 5 mg HS PRN PO INSOMNIA Last administered on 02/28/19at 00:40; Admin Dose 5 MG; Start 02/28/19 at 00:30 Magnesium Citrate (Citroma) 300 ml ONCE ONCE PO ; Start 02/28/19 at 17:30; Stop 02/28/19 at 17:31 Polyethylene Glycol (Miralax) 119 gm ONCE ONCE PO ; Start 02/28/19 at 18:30; Stop 02/28/19 at 18:31 Polyethylene Glycol (Miralax) 119 gm 2ND DOSE (GI PREP) ONCE PO ; Start 03/01/19 at 06:00; Stop 03/01/19 at 06:01 Bisacodyl (Dulcolax) 10 mg 2ND DOSE (GI PREP) ONCE PO ; Start 03/01/19 at 08:00; Stop 03/01/19 at 08:01 MELIZA SNOW MD Feb 28, 2019 14:13
[2019-02-28 15:56] VITALS: BP 92/60; PULSE 68; RESP 19
[2019-02-28] MEDS ORDERED: MAGNESIUM CITRATE 300 ML BTL PO ONE (17:30)
[2019-02-28] MEDS ORDERED: POLYETHYLENE GLYCOL 3350 119 GM POWDER PO ONE (18:30)
[2019-02-28 20:00] VITALS: BP 110/51; PULSE 62; RESP 19
[2019-02-28] MEDS: FAMOTIDINE 20 MG INJ IV SCH (20:21)
[2019-02-28] MEDS: ATORVASTATIN 40 MG TAB PO SCH (20:22)
[2019-03-01] VITALS (12 sets, daily range): BP systolic 87–131; BP diastolic 46–77; PULSE 62–84; RESP 16–28
[2019-03-01] MEDS: INSULIN ASPART [NOVOLOG] 3 ML PEN SC SCH ×7 (00:51→20:29)
[2019-03-01] MEDS: LEVOTHYROXINE 75 MCG TAB PO SCH (05:34)
[2019-03-01] MEDS ORDERED: POLYETHYLENE GLYCOL 3350 119 GM POWDER PO ONE (06:00)
[2019-03-01] MEDS ORDERED: BISACODYL (EC) 5 MG TAB PO ONE (08:00)
[2019-03-01] MEDS: ATENOLOL 25 MG TAB PO SCH (09:00)
[2019-03-01] MEDS: LISINOPRIL 10 MG TAB PO SCH (09:00)
[2019-03-01] MEDS: AMLODIPINE 5 MG TAB PO SCH ×2 (09:00→10:59)
[2019-03-01] MEDS: DOCUSATE SODIUM 100 MG CAP PO SCH ×2 (09:07→20:32)
[2019-03-01] MEDS: SOD FERRIC GLUC COMPLX 125 MG in SOD CHLORIDE 0.9% 100 ML IVPB SCH (12:59)
[2019-03-01] MEDS ORDERED: LIDOCAINE 2% (SDV) 5 ML INJ ONE (14:27)
--- NOTE | 2019-03-01 14:39 | PN ---
Date/Time of Note Date/Time of Note DATE: 03/01/19 TIME: 14:37 Assessment/Plan VTE Prophylaxis Risk score (from Nsg)>0 risk: 2 SCD applied (from Ns): Yes Pharmacological prophylaxis: NA/contraindicated Pharm contraindication: bleeding Lines/Catheters IV Catheter Type (from Nrsg): Saline Lock Urinary Cath still in place: No Assessment/Plan Assessment/Plan 68 yo woman with history of bleeding rectal hemorrhoids, HTN, type II diabetes mellitus, and hypothyroidism presents with symptomatic anemia #Symptomatic anemia - Iron deficiency - Transfuse to Hgb>7 or for symptomatic anemia - Will do IV ferrlicit also #Rectal bleed - Likely bleeding hemorrhoids. May be slow chronic bleed - GI consulted. - Plan for EGD+colonoscopy today. #Diabetes - Not on insulin or metformin. - HgbA1C 6.3 - ACHS blood sugar checks. #HTN - Cont home antihypertensives #GERD - H2 alexis IV BID #dyslipidemia - Cont home statin #Hypothyroidism - Cont home levothyroxine DVT: SCDs GI: H2 alexis Result Diagram: 02/28/19 0616 02/27/19 1550 Subjective 24 Hr Interval Summary Free Text/Dictation No acute overnight events. Took most of bowel prep. Vomited a little but this morning. Otherwise feeling well. Exam/Review of Systems Exam Vitals Vital Signs Date Temp Pulse Resp B/P (MAP) Pulse Ox O2 O2 Flow FiO2 Time Delivery Rate 03/01/19 77 18 131/77 11:03 (95) 03/01/19 97.7 91 08:20 02/28/19 Room Air 15:56 Intake and Output 02/28/19 02/28/19 03/01/19 1515:00 23:00 07:00 IntakeIntake Total 600 ml 800 ml BalanceBalance 600 ml 800 ml Exam Gen: Obese woman comfortable appearing in [facility]. Eyes: PERRL, no icterus HEENT: Moist mucous membranes. Top and bottom dentures. Clear oropharynx Neck: Supple, no lymphadenopathy Card: Regular rate and rhythm, no murmurs Pulm: Clear to auscultation bilaterally. Abd: Soft, nontender, nondistended. Normoactive bowel sounds. RLQ small 6 cm incision, well healed. Ext: No cyanosis/clubbing/edema Skin: warm, dry, well perfused. Results Results 24hrs Laboratory Tests Test 02/28/19 17:02 02/28/19 20:19 03/01/19 00:50 03/01/19 05:33 Bedside Glucose 98 102 109 102 Test 03/01/19 09:16 03/01/19 13:08 Bedside Glucose 110 122 Medications Medication Current Medications IV Flush (NS 3 ml) 3 ml PER PROTOCOL IV ; Start 02/27/19 at 19:00 Ondansetron HCl (Zofran Inj) 4 mg Q6H PRN IV NAUSEA/VOMITING Last administered on 03/01/19at 10:54; Admin Dose 4 MG; Start 02/27/19 at 19:00 Acetaminophen (Tylenol Tab) 650 mg Q6H PRN PO .PAIN 1-3 OR TEMP; Start 02/27/19 at 19:00 Famotidine (Pepcid Iv) 20 mg Q24H IV Last administered on 02/28/19at 20:21; Admin Dose 20 MG; Start 02/27/19 at 21:00 Senna (Senokot) 1 tab BID PRN PO CONSTIPATION; Start 02/27/19 at 19:00 Amlodipine Besylate (Norvasc) 5 mg DAILY PO Last administered on 03/01/19at 10:59; Admin Dose 5 MG; Start 02/28/19 at 09:00 Atenolol (Tenormin) 25 mg DAILY PO Last administered on 02/28/19 09:05; Admin Dose 25 MG; Start 02/28/19 at 09:00 Docusate Sodium (Colace) 100 mg BID PO Last administered on 03/01/19 09:07; Admin Dose 100 MG; Start 02/27/19 at 21:00 Levothyroxine Sodium (Synthroid) 75 mcg BEFORE BREAKFAST PO Last administered on 03/01/19 05:34; Admin Dose 75 MCG; Start 02/28/19 at 07:00 Lisinopril (Zestril) 10 mg DAILY PO Last administered on 02/28/19 09:05; Admin Dose 10 MG; Start 02/28/19 at 09:00 Atorvastatin Calcium (Lipitor) 40 mg QHS PO Last administered on 02/28/19 20:22; Admin Dose 40 MG; Start 02/27/19 at 21:00 Ferric Sodium Gluconate Complex 125 mg/Sodium Chloride 100 ml @ 100 mls/hr DAILY@1300 IVPB Last administered on 03/01/19at 12:59; Admin Dose 100 MLS/HR; Start 02/28/19 at 13:00; Stop 03/02/19 at 13:59 Miscellaneous Information 1 ea NOTE XX ; Start 02/27/19 at 19:30 Glucose (Glutose) 15 gm Q15M PRN PO DECREASED GLUCOSE; Start 02/27/19 at 19:30 Glucose (Glutose) 22.5 gm Q15M PRN PO DECREASED GLUCOSE; Start 02/27/19 at 19:30 Dextrose (D50w Syringe) 25 ml Q15M PRN IV DECREASED GLUCOSE; Start 02/27/19 at 19:30 Dextrose (D50w Syringe) 50 ml Q15M PRN IV DECREASED GLUCOSE; Start 02/27/19 at 19:30 Glucagon (Glucagen) 1 mg Q15M PRN IM DECREASED GLUCOSE; Start 02/27/19 at 19:30 Glucose (Glutose) 15 gm Q15M PRN BUCCAL DECREASED GLUCOSE; Start 02/27/19 at 19:30 Zolpidem Tartrate (Ambien) 5 mg HS PRN PO INSOMNIA Last administered on 02/28/19at 20:24; Admin Dose 5 MG; Start 02/28/19 at 00:30 Insulin Aspart (Novolog Insulin Pen) NOVOLOG *MILD* ALGORI... Q4 SC ; Start 03/01/19 at 01:00 MELIZA SNOW MD Mar 01, 2019 14:39
--- NOTE | 2019-03-01 14:45 | PREAC ---
Date/Time of Note Date/Time of Note DATE: 03/01/19 TIME: 14:44 Anesthesia Eval and Record Evaluation Time Pre-Procedure Interview DATE: 03/01/19 TIME: 14:44 Age 68 Sex female NPO: 8 hrs Preoperative diagnosis Symptomatic anemia Planned procedure EGD / colonoscopy Past Medical History Past Medical History: Includes Cardio: HTN, Dyslipidemia Endo: Diabetes, Hypothyroid GI: GERD, Obesity Surgery & Anesthesia Issues No known issue Meds Anticoagulation: No Beta Marlon within 24 hr: No Reason Beta Marlon not given: Pt. not on B-Marlon Reported Medications Ergocalciferol (Vitamin D2) (VITAMIN D2) 50,000 Unit Capsule, 38527 UNIT PO Q FRI, CAP 02/27/19 [place]-3 Acid Ethyl Esters (Lovaza) 1 Gm Capsule, 2 GM PO BID, CAP 02/27/19 Rosuvastatin Calcium* (Crestor*) 20 Mg Tablet, 20 MG PO QHS, #30 TAB 02/27/19 Esomeprazole Mag Trihydrate (Nexium) 20 Mg Capsule.dr, 20 MG PO BID, #30 CAP 02/27/19 Amlodipine Besylate* (Norvasc*) 5 Mg Tablet, 5 MG PO DAILY, TAB 02/27/19 Atenolol* (Atenolol*) 25 Mg Tablet, 25 MG PO DAILY, #30 TAB 02/27/19 Levothyroxine Sodium* (Levothyroxine Sodium*) 75 Mcg Tablet, 75 MCG PO BEFORE BREAKFAST, #30 TAB 02/27/19 Docusate Sodium* (Colace*) 100 Mg Capsule, 100 MG PO BID, #60 CAP 02/27/19 Lisinopril* (Lisinopril*) 10 Mg Tablet, 10 MG PO NEEDED, #30 TAB 02/27/19 Current Medications IV Flush (NS 3 ml) 3 ml PER PROTOCOL IV ; Start 02/27/19 at 19:00 Ondansetron HCl (Zofran Inj) 4 mg Q6H PRN IV NAUSEA/VOMITING Last administered on 03/01/19at 10:54; Admin Dose 4 MG; Start 02/27/19 at 19:00 Acetaminophen (Tylenol Tab) 650 mg Q6H PRN PO .PAIN 1-3 OR TEMP; Start 02/27/19 at 19:00 Famotidine (Pepcid Iv) 20 mg Q24H IV Last administered on 02/28/19at 20:21; Admin Dose 20 MG; Start 02/27/19 at 21:00 Senna (Senokot) 1 tab BID PRN PO CONSTIPATION; Start 02/27/19 at 19:00 Amlodipine Besylate (Norvasc) 5 mg DAILY PO Last administered on 03/01/19at 10:59; Admin Dose 5 MG; Start 02/28/19 at 09:00 Atenolol (Tenormin) 25 mg DAILY PO Last administered on 02/28/19at 09:05; Admin Dose 25 MG; Start 02/28/19 at 09:00 Docusate Sodium (Colace) 100 mg BID PO Last administered on 03/01/19at 09:07; Admin Dose 100 MG; Start 02/27/19 at 21:00 Levothyroxine Sodium (Synthroid) 75 mcg BEFORE BREAKFAST PO Last administered on 03/01/19 05:34; Admin Dose 75 MCG; Start 02/28/19 at 07:00 Lisinopril (Zestril) 10 mg DAILY PO Last administered on 02/28/19at 09:05; Admin Dose 10 MG; Start 02/28/19 at 09:00 Atorvastatin Calcium (Lipitor) 40 mg QHS PO Last administered on 02/28/19at 20: 22; Admin Dose 40 MG; Start 02/27/19 at 21:00 Ferric Sodium Gluconate Complex 125 mg/Sodium Chloride 100 ml @ 100 mls/hr DAILY@1300 IVPB Last administered on 03/01/19at 12:59; Admin Dose 100 MLS/HR; Start 02/28/19 at 13:00; Stop 03/02/19 at 13:59 Miscellaneous Information 1 ea NOTE XX ; Start 02/27/19 at 19:30 Glucose (Glutose) 15 gm Q15M PRN PO DECREASED GLUCOSE; Start 02/27/19 at 19:30 Glucose (Glutose) 22.5 gm Q15M PRN PO DECREASED GLUCOSE; Start 02/27/19 at 19:30 Dextrose (D50w Syringe) 25 ml Q15M PRN IV DECREASED GLUCOSE; Start 02/27/19 at 19:30 Dextrose (D50w Syringe) 50 ml Q15M PRN IV DECREASED GLUCOSE; Start 02/27/19 at 19:30 Glucagon (Glucagen) 1 mg Q15M PRN IM DECREASED GLUCOSE; Start 02/27/19 at 19:30 Glucose (Glutose) 15 gm Q15M PRN BUCCAL DECREASED GLUCOSE; Start 02/27/19 at 19:30 Zolpidem Tartrate (Ambien) 5 mg HS PRN PO INSOMNIA Last administered on 02/28/19at 20:24; Admin Dose 5 MG; Start 02/28/19 at 00:30 Insulin Aspart (Novolog Insulin Pen) NOVOLOG *MILD* ALGORI... Q4 SC ; Start 03/01/19 at 01:00 Meds reviewed: Yes Allergies Coded Allergies: aspirin (Verified Allergy, Unknown, 02/27/19) Allergies Reviewed: Yes Labs/Studies Labs Reviewed: Reviewed by anesthesiologist Result Diagram: 02/28/19 0616 02/27/19 1550 test: N/A Pre-procedure Exam Last vitals Vital Signs Date Temp Pulse Resp B/P (MAP) Pulse Ox O2 O2 Flow FiO2 Time Delivery Rate 03/01/19 77 18 131/77 11:03 (95) 03/01/19 97.7 91 08:20 02/28/19 Room Air 15:56 Airway: Adequate mouth opening Mallampati: Mallampati II Teeth: Normal Lung: Normal Heart: Normal ASA Physical Status ASA physical status: 3 Emergency: None Planned Anesthetic General/MAC: MAC Pre-operative Attestations Prior to commencing anesthesia and surgery, the patient was re-evaluated, there was verification of: *The patient's identity *The results of appropriate recent lab work and preoperative vital signs *The above evaluation not changing prior to induction *Anesthetic plan, risk benefits, alternative and complications discussed with patient/family; questions answered; patient/family understands, accepts and wishes to proceed. JOCELIN CASON Mar 01, 2019 14:45
[2019-03-01] MEDS ORDERED: PROPOFOL 40 ML ONE (14:47)
--- NOTE | 2019-03-01 15:34 | PAC ---
Date/Time of Note Date/Time of Note DATE: 03/01/19 TIME: 15:34 Post-Anesthesia Notes Post-Anesthesia Note Last documented vital signs Vital Signs Date Temp Pulse Resp B/P (MAP) Pulse Ox O2 O2 Flow FiO2 Time Delivery Rate 03/01/19 97.6 78 22 87/50 (62) 91 14:00 02/28/19 Room Air 15:56 Activity: WNL Respiratory function: WNL Cardiovascular function: WNL Mental status: Baseline Pain reasonably controlled: Yes Hydration appropriate: Yes Nausea/Vomiting absent: Yes JOCELIN CASON Mar 01, 2019 15:34
[2019-03-01] MEDS: ATORVASTATIN 40 MG TAB PO SCH (20:32)
[2019-03-02 02:48] VITALS: BP 95/56; PULSE 79; RESP 19
[2019-03-02] MEDS ORDERED: PANTOPRAZOLE (EC) 40 MG TAB PO SCH (06:00)
[2019-03-02] MEDS: LEVOTHYROXINE 75 MCG TAB PO SCH (06:23)
[2019-03-02] MEDS: INSULIN ASPART [NOVOLOG] 3 ML PEN SC SCH (07:30)
[2019-03-02 08:00] VITALS: BP 119/72; PULSE 77; RESP 19
[2019-03-02] MEDS: DOCUSATE SODIUM 100 MG CAP PO SCH (08:25)
[2019-03-02] MEDS: AMLODIPINE 5 MG TAB PO SCH (08:26)
[2019-03-02] MEDS: ATENOLOL 25 MG TAB PO SCH (08:26)
[2019-03-02] MEDS: LISINOPRIL 10 MG TAB PO SCH (08:27)
--- NOTE | 2019-03-02 11:22 | PDOCDIS ---
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
--- NOTE | 2019-03-02 12:31 | DS ---
Date/Time of Note Date/Time of Note DATE: 03/02/19 TIME: 12:27 Discharge Summary Admission/Discharge Info Admit Date/Time Feb 27, 2019 at 19:27 Discharge Date/Time March 02, 2019 Discharge Diagnosis 68 yo woman with history of bleeding rectal hemorrhoids, HTN, type II diabetes mellitus, and hypothyroidism presents with symptomatic anemia #Symptomatic anemia secondary to hemorrhoids-now stable -Colonoscopy shows known internal hemorrhoids and polyps -EGD shows mild esophagitis and moderate gastritis, continue home PPI -Patient follows up with a specialist for her known internal hemorrhoids -Status post blood and iron transfusion #Rectal bleed -Secondary to known internal hemorrhoids -Patient follows with specialist for internal hemorrhoid treatment #Prediabetes -Lifestyle changes - HgbA1C 6.3 #HTN - Cont home antihypertensives #GERD -Continue PPI #dyslipidemia - Cont home statin #Hypothyroidism - Cont home levothyroxine #Morbid obesity -Lifestyle changes Patient Condition: Good Hospital Course Patient is a 68 yo woman with history of bleeding rectal hemorrhoids, HTN, obesity, and hypothyroidism presents with symptomatic anemia. Patient was seen by GI and EGD and colonoscopy were done, EGD showed mild esophagitis and moderate gastritis, colonoscopy showed polyps and internal hemorrhoids. Patient currently follows up with a specialist for her internal hemorrhoid treatment, patient was transfused blood and iron with stabilization of hemoglobin. Patient was able for DC, the day of discharge patient's vitals, labs and physical exam are stable. Patient to continue to follow-up with specialist for hemorrhoid treatment. Home Meds Reported Medications Ergocalciferol (Vitamin D2) (VITAMIN D2) 50,000 Unit Capsule, 76866 UNIT PO Q FRI, CAP 02/27/19 [place]-3 Acid Ethyl Esters (Lovaza) 1 Gm Capsule, 2 GM PO BID, CAP 02/27/19 Rosuvastatin Calcium* (Crestor*) 20 Mg Tablet, 20 MG PO QHS, #30 TAB 02/27/19 Esomeprazole Mag Trihydrate (Nexium) 20 Mg Capsule.dr, 20 MG PO BID, #30 CAP 02/27/19 Amlodipine Besylate* (Norvasc*) 5 Mg Tablet, 5 MG PO DAILY, TAB 02/27/19 Atenolol* (Atenolol*) 25 Mg Tablet, 25 MG PO DAILY, #30 TAB 02/27/19 Levothyroxine Sodium* (Levothyroxine Sodium*) 75 Mcg Tablet, 75 MCG PO BEFORE BREAKFAST, #30 TAB 02/27/19 Docusate Sodium* (Colace*) 100 Mg Capsule, 100 MG PO BID, #60 CAP 02/27/19 Lisinopril* (Lisinopril*) 10 Mg Tablet, 10 MG PO NEEDED, #30 TAB 02/27/19 Follow-up Plan FOLLOW UP WITH YOUR PCP AND DIRECTOR MARKET RESEARCH Primary Care Provider Not On Staff Doctor Time spent on discharge: > 30 minutes ABDIRAHMAN DURAN Mar 02, 2019 12:31
== END 2019-03-02 12:40 | disposition home or self-care (01) | DRG 394 ==
LOC: E/R 14:36 → PP2 19:27
PROVIDERS: ADMIT Internal Medicine; ATTEND Internal Medicine
PROC: 30233N1 Transfusion of Nonautologous Red Blood Cells into Peripheral Vein, Percutaneous Approach (ICD-10-PCS; 2019-02-27)
PROC: 0DBL8ZZ Excision of Transverse Colon, Via Natural or Artificial Opening Endoscopic (ICD-10-PCS; principal; 2019-03-01 16:00)
PROC: 0DB68ZX Excision of Stomach, Via Natural or Artificial Opening Endoscopic, Diagnostic (ICD-10-PCS; 2019-03-01 16:00)
DX: K64.8 Other hemorrhoids (principal); D62 Acute posthemorrhagic anemia; K63.5 Polyp of colon; I10 Essential (primary) hypertension; K21.9 Gastro-esophageal reflux disease without esophagitis; E78.5 Hyperlipidemia, unspecified; E03.9 Hypothyroidism, unspecified; E66.01 Morbid (severe) obesity due to excess calories; Z68.33 Body mass index [BMI] 33.0-33.9, adult; R73.03 Prediabetes; K20.9 Esophagitis, unspecified
CPT/HCPCS: 36415; 36430; 80048; 80053; 82728; 82962; 83036; 83540; 83735; 84100; 84466; 85025; 86850; 86900; 86901; 86920; 88305; 88312; J1815; J2405; J2916; J7040; P9016